=== PATIENT | female | born 1995 | race Caucasian/White ===

== ENCOUNTER 2023-11-21 18:19 | Emergency (ER) | payer MEDICAID ==
[~2023-11-21] VITALS: Ht 162.6 cm; Wt 61.4 kg
[~2023-11-21 18:19] MED LIST: NORE1PAT TD
[2023-11-21 18:40] VITALS: TEMP 97.2
[2023-11-21] MEDS: dexamethasone sod phosphate 10mg/ml inj IM STA (18:47)
[2023-11-21] MEDS: ipratropium/albuterol 3ml nebule NEB ONE (19:58)
[2023-11-21 20:00] VITALS: PULSE 85; RESP 16; O2SAT 98
[2023-11-21 20:07] VITALS: PULSE 88; RESP 16; O2SAT 98
[2023-11-21] MEDS ORDERED: CEFD300C3 PO (20:47)
[2023-11-21 20:52] VITALS: BP 101/72; PULSE 82; RESP 17; O2SAT 97
== END 2023-11-21 20:53 | disposition home or self-care (01) ==
LOC: ER 18:20
DX: J40 Bronchitis, not specified as acute or chronic (principal)
CPT/HCPCS: 71045; 94640; 96372; 99283; J1100; 94760

== ENCOUNTER 2023-11-30 01:37 | Emergency (ER) | payer MEDICAID ==
[~2023-11-30] VITALS: Ht 162.6 cm; Wt 60.3 kg
[~2023-11-30 01:37] MED LIST changes: +CEFD300C3 PO
[2023-11-30 01:40] VITALS: TEMP 97.6
[2023-11-30] MEDS: normal saline 1000ML IV soln IVB ONE (01:57)
[2023-11-30] MEDS: methylPREDNISolone sod succ 125mg/2ml vial IV ONE (01:57)
[2023-11-30] MEDS: ipratropium/albuterol 3ml nebule NEB ONE (02:00)
[2023-11-30 02:01] VITALS: PULSE 119; RESP 20; O2SAT 99
[2023-11-30 02:12] VITALS: PULSE 100; RESP 18; O2SAT 100
[2023-11-30] MEDS ORDERED: ALBU18HF2 INH (03:52)
[2023-11-30] MEDS ORDERED: PRED10TA PO (03:52)
[2023-11-30] MEDS: albuterol 2.5 MG/3 ML nebule CONTNEB PRN (03:55)
[2023-11-30 03:57] VITALS: PULSE 92; RESP 18; O2SAT 94
[2023-11-30 04:03] VITALS: BP 108/90; PULSE 89; RESP 14; O2SAT 99
== END 2023-11-30 04:19 | disposition home or self-care (01) ==
LOC: ER 01:39
DX: J45.909 Unspecified asthma, uncomplicated (principal); F17.200 Nicotine dependence, unspecified, uncomplicated; Z79.2 Long term (current) use of antibiotics; Z79.899 Other long term (current) drug therapy
CPT/HCPCS: 71045; 93005; 94640; 94644; 96361; 96374; 99285; J2930; J7030; 94760; A7015

== ENCOUNTER 2025-04-04 18:24 | Emergency (ER) | payer MEDICAID ==
[~2025-04-04] VITALS: Ht 162.6 cm; Wt 73.4 kg
[~2025-04-04 18:24] MED LIST changes: +ALBU18HF2 INH; -CEFD300C3 PO; +PRED10TA PO
[2025-04-04 18:59] VITALS: BP 130/93; PULSE 94; RESP 16; O2SAT 95
[2025-04-04] MEDS ORDERED: SERT-433 PO (19:25)
--- NOTE | 2025-04-04 19:31 | Physician Documentation ---
History of Present Illness ~ Chief Complaint: Bite-animal Stated Complaint: CAT BITE Time Seen by MD: 19:19 OK to notify your PCP?: Yes Primary Medical Doctor: NONE Source: patient Mode of Arrival: POV Exam Limitations: no limitations HPI 29-year-old female presents with a multiple bite harding to her right forearm after attempting to get a stray CAT out of a fence after its leg was caught. She has multiple scratches on the arm as well but there is no erythema at those areas. Next to the bite harding there is significant erythema but it is not spreading up her arm. There is slight edema at the site as well. She has not taken any medications prior to arrival for her symptoms. Last tetanus is unknown. Has not received any rabies vaccines. Tetanus within 5 years?: Yes Medication Reconciliation Allergies: Coded Allergies: No Known Allergies (Unverified , 07/18/11) Scheduled Prednisone (Prednisone), 1 TAB PO DAILY Scheduled PRN Albuterol Sulfate (Ventolin Hfa), 2 PUFFS INH Q4HPRN PRN for wheezing Miscellaneous Medications Norelgestromin/Ethin.estradiol (Ortho Evra Patch), 1 EACH TD, (Reported) Past Medical History Past Medical History: No Pertinent History Past Surgical History: no surgical history Alcohol Use: None Drug Use: none Review of Systems All Other Systems at this time: Reviewed and Negative Physical Exam Vital Signs: RN Vital Signs have been reviewed: Yes, Temperature: 98.6, Source: Oral, Heart Rate: 94, Respiratory Rate: 16, BP: 130/93, Pulse Oximetry: 95, Weight: 73.400 Pulse Oximetry Reflects: adequate oxygenation Physical Exam General: Alert, no distress. HEENT: No injection, moist mucous membranes. Neck: Full range of motion. Respiratory: No respiratory distress, equal chest rise and fall. Chest: No accessory muscle use. Cardiovascular: Regular rate and rhythm. Gastrointestinal: Nondistended. Extremities: Normal range of motion, no deformity. Neurologic: Oriented x4. Psychiatric: Normal mood and affect. Skin: 3 puncture harding to right lateral forearm with surrounding erythema and slight edema and warmth, multiple abrasions to the plantar surface of right hand. Progress Results/Orders Reviewed/noted all lab results: Yes Results/Orders Vital Signs 04/04/25 18:59 Temp 98.6 Pulse 94 Resp 16 B/P (MAP) 130/93 Pulse Ox 95 Medical Decision Making Additional info obtained from: old records Findings 29-year-old female with multiple puncture harding to her right forearm as well as scratch harding to her right hand as you was trying to get a CAT out of the fence last night. There is erythema, edema and warmth surrounding the puncture harding. As the vaccine status of the cat is unknown, we will do rabies prophylaxis with the immunoglobulin at the site and the 4-day post exposure rabies prophylaxis vaccines as well as a tetanus vaccine. She agrees with the plan. I will put her on Augmentin with the 1st dose given here in the rest sent to her pharmacy. Differential Dx:Considerations: Include: Abrasion, Fracture, Neurovascular injury, Retained foreign body Departure Disposition: 01 HOME / SELF CARE / HOMELESS Impression: Primary Impression: Cat bite Additional Impression: Cellulitis Condition: Stable Discharge Instructions: Animal Bite, Adult Additional Instructions: Today you received a post exposure rabies vaccination and immunoglobulin and you will need to return in 3 days (on 04/07/25), 7 days (on 04/11/25) and 14 days (on 04/18/25) for repeat rabies vaccinations. Please take all antibiotics as prescribed and finish the course. Return back here for any new or worsening symptoms. Keep arm elevated when you are sleeping to help reduce the swelling. You may take Tylenol and/or ibuprofen for pain relief at home. Follow up with her primary care provider within the next 3 days for a wound recheck. Referrals: NO PRIMARY CARE PROVIDER (PCP) Prescriptions Amox Tr/Potassium Clavulanate 875/125 MG (Augmentin 875/125 MG) 875 Mg-125 Mg Tablet 1 TAB PO Q12H for 10 Days, #20 TAB Prov: CHRISTIANE KELLEY 04/04/25 Education Educated: Patient Educated regarding: diagnosis, treatment, prognosis, need for follow up Additional Comment Medical Screen Exam This patient recieved a medical screening examination. After reviewing the individual's medical complaints with presenting symptoms and performing an appropriate physical examination, it was determined that no immediate life- threatening emergency medical condition is present. This individual is also not a women having contractions. Signature Scribe Signature: . Attestation: Scribed for Christiane Kelley by Christiane Francisco NP . 04/04/25 19:42 Parts of this note were created using [employer] voice recognition software program. While efforts were made to correct any mistakes made by this voice recognition software program, nonsensical phrases may remain in this note. In addition, there may be errors and syntax, grammar, content and spelling. CHRISTIANE KELLEY [facility] Apr 04, 2025 19:31
[2025-04-04] MEDS ORDERED: AMOX-580 PO (19:37)
[2025-04-04] MEDS: rabies immune globulin/PF 150 unit/ml inj IMVAC STA (19:54)
[2025-04-04] MEDS: TETanus/Pertussis (Acell)/Diphther VAC/PF (Tdap-Adult) 0.5ml syringe IMVAC ONE (20:10)
[2025-04-04] MEDS: amox tr/potassium clavulanate 875/125mg TAB PO ONE (20:11)
[2025-04-04 20:22] VITALS: TEMP 98.6
== END 2025-04-04 20:23 | disposition home or self-care (01) ==
LOC: ER 18:24
DX: Z20.3 Contact with and (suspected) exposure to rabies (principal); S60.511A Abrasion of right hand, initial encounter; S51.831A Puncture wound without foreign body of right forearm, initial encounter; Z79.899 Other long term (current) drug therapy; W55.01XA Bitten by cat, initial encounter; Y93.89 Activity, other specified; Y92.89 Other specified places as the place of occurrence of the external cause; Y99.8 Other external cause status
CPT/HCPCS: 90376; 90471; 90472; 90675; 90715; 99284

== ENCOUNTER 2025-04-07 11:51 | Emergency (ER) | payer MEDICAID ==
[~2025-04-07] VITALS: Ht 162.6 cm; Wt 72.9 kg
[~2025-04-07 11:51] MED LIST changes: +AMOX-580 PO; +SERT-433 PO
[2025-04-07 12:04] VITALS: BP 112/85; PULSE 102; TEMP 98.5; O2SAT 99
--- NOTE | 2025-04-07 12:11 | Physician Documentation ---
HPI ~ General Chief Complaint: Medication Request Stated Complaint: RABIES VACCINE Time Seen by MD: 12:10 Primary Medical Doctor: NONE History of Present Illness HPI Comments 29-year-old female presents to the ED with a request for the 2nd round of vaccine for rabies. Current symptom Without Medications Since: Apr 07, 2025 Medication Reconciliation Allergies: Coded Allergies: No Known Allergies (Unverified , 07/18/11) Scheduled Amox Tr/Potassium Clavulanate 875/125 MG (Augmentin 875/125 MG), 1 TAB PO Q12H Prednisone (Prednisone), 1 TAB PO DAILY Scheduled PRN Albuterol Sulfate (Ventolin Hfa), 2 PUFFS INH Q4HPRN PRN for wheezing Miscellaneous Medications Norelgestromin/Ethin.estradiol (Ortho Evra Patch), 1 EACH TD, (Reported) Sertraline HCl (Sertraline HCl), 50 MG PO, (Reported) Past Medical History Past Medical History: No Pertinent History Past Surgical History: no surgical history Alcohol Use: None Drug Use: none Review of Systems All Other Systems at this time: Reviewed and Negative ROS Scribed for Emergency,Department by Fermin Francisco NP . 04/07/25 12:11 Physical Exam Physical Exam Vital Signs: Temperature: 98.5, Source: Oral, Heart Rate: 102, Respiratory Rate: 16, BP: 112/85, Pulse Oximetry: 99, Weight: 72.900 Oxygen Flow Rate: 0 Physical Exam General: Alert, no apparent distress. HEENT: PERRL, EOMI, no injection, moist mucous membranes. Neck: Full range of motion. Respiratory: Lungs clear, no respiratory distress. Chest: No accessory muscle use. Cardiovascular: Regular rate and rhythm, no murmurs. Gastrointestinal: Soft, nontender, nondistended. Bowels sounds present. Extremities: Normal range of motion, no deformity. Neurologic: Oriented x4. Psychiatric: Normal mood and affect. Skin: Normal color, warm and dry. No edema, no ecchymosis. Progress Results/Orders Results/Orders Completed Orders - FERMIN CID NP Rabies Vaccine (Pcec)/Pf (Rabavert Rabie (04/07/25 12:10) Medications Received in ER Medications (Trade) Dose Ordered Sig/Vivek Route PRN Reason Start Time Stop Time Status Last Admin Dose Admin (Rabavert Rabies Vaccine kit) 2.5 unit ONCE ONCE IMVAC 04/07/25 12:10 04/07/25 12:11 DC 04/07/25 12:48 2.5 UNIT Vital Signs 04/07/25 04/07/25 12:04 12:42 Temp 98.5 Pulse 102 Resp 16 16 B/P (MAP) 112/85 Pulse Ox 99 O2 Flow Rate 0 Medical Decision Making Findings Round of vaccine administered patient will follow up on day 7 for additiona vaccine Differential Dx:Considerations: Include: Adverse circumstances, Economic, Psychosocial, Medical services unavail., Medication refill, Medication non- compliance, Other Departure Disposition: 01 HOME / SELF CARE / HOMELESS Impression: Primary Impression: General medical exam Condition: Stable Discharge Instructions: Medicine Refill at the Emergency Department Additional Instructions: Follow up for additional vaccine on day seven Referrals: NO PRIMARY CARE PROVIDER (PCP) Signature Scribe Signature: tg Attestation: Scribed for Fermin Cid Foundation Engineer by Fermin Francisco NP . 04/07/25 15:20 FERMIN CID NP Apr 07, 2025 12:11
[2025-04-07 12:42] VITALS: RESP 16
== END 2025-04-07 12:56 | disposition home or self-care (01) ==
LOC: ER 11:52
DX: T14.8XXD Other injury of unspecified body region, subsequent encounter (principal); Z23 Encounter for immunization; Z79.899 Other long term (current) drug therapy; W54.0XXD Bitten by dog, subsequent encounter
CPT/HCPCS: 90471; 90675; 99281

== ENCOUNTER 2025-04-11 13:26 | Emergency (ER) | payer MEDICAID ==
[~2025-04-11] VITALS: Ht 162.6 cm; Wt 72.5 kg
[2025-04-11 13:44] VITALS: BP 117/85; PULSE 86; RESP 18; TEMP 97.1; O2SAT 98
--- NOTE | 2025-04-11 15:29 | Physician Documentation ---
HPI ~ General Chief Complaint: Medication Request Stated Complaint: RABIES VACCINE Time Seen by MD: 14:40 Primary Medical Doctor: NONE History of Present Illness HPI Comments Patient is a 29-year-old female with a presents to the emergency department for are filters her subsequent set of prophylactic rabies series. Patient denies any concerns with the previous injections. Medication Reconciliation Allergies: Coded Allergies: No Known Allergies (Unverified , 04/11/25) Scheduled Amox Tr/Potassium Clavulanate 875/125 MG (Augmentin 875/125 MG), 1 TAB PO Q12H Prednisone (Prednisone), 1 TAB PO DAILY Scheduled PRN Albuterol Sulfate (Ventolin Hfa), 2 PUFFS INH Q4HPRN PRN for wheezing Miscellaneous Medications Norelgestromin/Ethin.estradiol (Ortho Evra Patch), 1 EACH TD, (Reported) Sertraline HCl (Sertraline HCl), 50 MG PO, (Reported) Past Medical History Past Medical History: No Pertinent History Past Surgical History: no surgical history Alcohol Use: None Drug Use: none Review of Systems ROS As stated above in the HPI, otherwise all systems are reviewed and negative. Constitutional: Reports: no symptoms reported, see HPI, chills, diaphoresis, fever, malaise, weakness, other Physical Exam Physical Exam Vital Signs: Temperature: 97.1, Source: Oral, Heart Rate: 86, Respiratory Rate: 18, BP: 117/85, Pulse Oximetry: 98, Weight: 72.500 Oxygen Flow Rate: 0 Physical Exam VITALS: Reviewed and as above. GENERAL: Alert, no apparent distress. HEENT: Normocephalic, atraumatic, PERRL, EOMI, dry mucosa, no erythema RESPIRATORY: Lungs clear, normal breath sounds, no respiratory distress. CHEST: No accessory muscle use, no retractions CV: Regular rate, rhythm, no edema, no murmur, No: JVD GI: Soft, non-tender, bowels sounds present, no rebound, guarding, or rigidity BACK: No CVA tenderness, or swelling MUSCULOSKELETAL No deformities, no edema SKIN: Warm and dry, no rash NEURO: Oriented x4, No motor or sensory deficit PSYCH: Normal mood and affect, no agitation Progress Results/Orders Results/Orders Completed Orders - PUJA STYLES OPERATIONS SUPPORT REPRESENTATIVE Rabies Vaccine (Pcec)/Pf (Rabavert Rabie (04/11/25 15:00) Medications Received in ER Medications (Trade) Dose Ordered Sig/Vivek Route PRN Reason Start Time Stop Time Status Last Admin Dose Admin (Rabavert Rabies Vaccine kit) 2.5 unit ONCE ONCE IMVAC 04/11/25 15:00 04/11/25 15:01 DC 04/11/25 15:13 2.5 UNIT Vital Signs 04/11/25 13:44 Temp 97.1 Pulse 86 Resp 18 B/P (MAP) 117/85 Pulse Ox 98 O2 Flow Rate 0 Medical Decision Making Findings Next set of rabies prophylaxis administered today. Patient is scheduled for one additional set of injections. She will follow up with primary care provider with any additional concerns. Patient will return to the emergency department with any concerning symptoms her any side effects of the injection today. Differential Dx:Considerations: Include: Adverse circumstances, Economic, Psychosocial, Medical services unavail., Medication refill, Medication non- compliance, Other Departure Disposition: HOME / SELF CARE / HOMELESS Impression: Primary Impression: General medical exam Additional Impression: Medication administered Additional Instructions: Next set of rabies prophylaxis administered today. Patient is scheduled for one additional set of injections. She will follow up with primary care provider with any additional concerns. Patient will return to the emergency department with any concerning symptoms her any side effects of the injection today. Referrals: NO PRIMARY CARE PROVIDER (PCP) Education Educated: Patient Educated regarding: diagnosis, treatment, need for follow up Signature Scribe Signature: A Attestation: Scribed for Puja Styles by JASMIN Lockhart . 04/11/25 15:30 PUJA STYLES Apr 11, 2025 15:29
== END 2025-04-11 15:58 | disposition home or self-care (01) ==
LOC: ER 13:27
DX: Z00.00 Encounter for general adult medical examination without abnormal findings (principal); Z79.899 Other long term (current) drug therapy
CPT/HCPCS: 90471; 90675; 99281

== ENCOUNTER 2025-04-18 12:30 | Emergency (ER) | payer MEDICAID ==
[~2025-04-18] VITALS: Ht 162.6 cm; Wt 71.4 kg
[~2025-04-18 12:30] MED LIST changes: -AMOX-580 PO
[2025-04-18 12:33] VITALS: BP 124/94; PULSE 103; RESP 18; O2SAT 99
--- NOTE | 2025-04-18 12:53 | Physician Documentation ---
History of Present Illness ~ Chief Complaint: Bite-animal Stated Complaint: RABIES SHOT Time Seen by MD: 12:32 OK to notify your PCP?: Yes Primary Medical Doctor: NONE Source: patient Mode of Arrival: POV Exam Limitations: no limitations HPI 29-year-old female returning for the last dose of her rabies vaccine series. She was initially seen on April 04 with a cat bite to the right forearm which appears to be healing well. She has no new medical complaints. Tetanus within 5 years?: Yes Medication Reconciliation Allergies: Coded Allergies: No Known Allergies (Unverified , 04/11/25) Scheduled Prednisone (Prednisone), 1 TAB PO DAILY Scheduled PRN Albuterol Sulfate (Ventolin Hfa), 2 PUFFS INH Q4HPRN PRN for wheezing Miscellaneous Medications Norelgestromin/Ethin.estradiol (Ortho Evra Patch), 1 EACH TD, (Reported) Sertraline HCl (Sertraline HCl), 50 MG PO, (Reported) Discontinued Medications Amox Tr/Potassium Clavulanate 875/125 MG (Augmentin 875/125 MG), 1 TAB PO Q12H Discontinued Reason: Auto Discontinued Past Medical History Past Medical History: No Pertinent History Past Surgical History: no surgical history Alcohol Use: None Drug Use: none Physical Exam Vital Signs: RN Vital Signs have been reviewed: Yes, Temperature: 98.5, Source: Oral, Heart Rate: 103, Respiratory Rate: 18, BP: 124/94, Pulse Oximetry: 99, Weight: 71.360 Pulse Oximetry Reflects: adequate oxygenation Physical Exam General: Alert, no distress. HEENT: No injection, moist mucous membranes. Neck: Full range of motion. Respiratory: No respiratory distress, equal chest rise and fall. Chest: No accessory muscle use. Cardiovascular: Regular rate and rhythm. Gastrointestinal: Nondistended. Extremities: Normal range of motion, no deformity. Neurologic: Oriented x4. Psychiatric: Normal mood and affect. Skin: Normal color, warm and dry. Intact. Progress Results/Orders Results/Orders Completed Orders - DIONNE KELLEY AUTO BODY REPAIRMAN Rabies Vaccine (Pcec)/Pf (Rabavert Rabie (04/18/25 12:55) Vital Signs 04/18/25 12:33 Temp 98.5 Pulse 103 Resp 18 B/P (MAP) 124/94 Pulse Ox 99 Medical Decision Making Additional info obtained from: old records Findings She is requesting the last dose of her rabies vaccine series which started on April 04. She received a dose on April 07, April 11 and then today being 14 days since initial vaccine. We administered the rabies vaccine while here in the department. We discussed booster vaccines in the future should she choose which can be done on outpatient basis. Her cat bite site is completely healed no signs of infection. She has no new medical complaints. Differential Dx:Considerations: Include: Cellulitis, Neurovascular injury, Punture wound Departure Disposition: HOME / SELF CARE / HOMELESS Impression: Primary Impression: Medication administered Additional Impression: General medical exam Condition: Stable Discharge Instructions: [facility]ies - [facility] (12/29/2021) Additional Instructions: Today you received the last dose of the rabies vaccine series. This should provide protection from rabies for at least 2 years. If you require any booster injections please obtain these through your primary care provider. Referrals: NO PRIMARY CARE PROVIDER (PCP) Education Educated: Patient Educated regarding: diagnosis, treatment, prognosis, need for follow up Additional Comment Medical Screen Exam This patient recieved a medical screening examination. After reviewing the individual's medical complaints with presenting symptoms and performing an appropriate physical examination, it was determined that no immediate life- threatening emergency medical condition is present. This individual is also not a women having contractions. Signature Scribe Signature: . Attestation: Scribed for Dionne Kelley by Dionne Francisco NP . 04/18/25 13:07 Parts of this note were created using [employer] voice recognition software program. While efforts were made to correct any mistakes made by this voice recognition software program, nonsensical phrases may remain in this note. In addition, there may be errors and syntax, grammar, content and spelling. DIONNE KELLEY Apr 18, 2025 12:53
[2025-04-18 13:16] VITALS: TEMP 98.5
== END 2025-04-18 13:18 | disposition home or self-care (01) ==
LOC: ER 12:30
DX: S51.851D Open bite of right forearm, subsequent encounter (principal); W55.01XD Bitten by cat, subsequent encounter
CPT/HCPCS: 90471; 90675; 99281